=== PATIENT | female | born 1945 | race Caucasian/White ===

== ENCOUNTER 2019-06-08 05:42 | Day surgery (SDC) | payer MEDICARE, OTHER, SELFPAY ==
[2019-06-08] VITALS (7 sets, daily range): BP systolic 137–150; BP diastolic 60–86; PULSE 58–64; RESP 15–16; TEMP 36.2–36.7; O2SAT 96–100; BMI 30.2
--- NOTE | 2019-06-08 05:53 | EKG12_ITS ---
Test Reason : PRE-OP Blood Pressure : / mmHG Vent. Rate : 061 BPM Atrial Rate : 061 BPM P-R Int : 186 ms QRS Dur : 078 ms QT Int : 412 ms P-R-T Axes : 056 008 044 degrees QTc Int : 414 ms Normal sinus rhythm Normal ECG When compared with ECG of 25-MAR-2017 11:53, Nonspecific T wave abnormality now evident in Inferior leads Confirmed by TRELL VAERLA, KENAN ([id number]), editor greeting card MAYRA VICENTE ([id number]) on 06/12/2019 1:03:20 PM Referred By: Nessa Carey Confirmed By:FLACA CAI MD
[2019-06-08 06:27] LABS: Hematocrit 42.7 % (37-47); Hemoglobin 13.8 g/dL (12.0-15.0); Mean Corp Hgb Conc 32.3 g/dL (32-36); Mean Corpuscular Hgb 31.1 pg (27.0-32.0); Mean Corpuscular Volume 96.2 fL (81-99); Mean Platelet Vol. 9.8 fl (6.2-12.0); Platelet Count 209 K/mm3 (150-450); RBC Distribution Width CV 12.4 % (11.6-14.6); RBC Distribution Width SD 43.7 fl (35.1-43.9); Red Blood Count 4.44 M/mm3 (4.2-5.4); White Blood Count 5.1 K/mm3 (4.4-11.0)
[2019-06-08] MEDS: Lactated Ringers 1,000 ML 100 ML IV (06:32)
[2019-06-08 06:33] LABS: International Normalized Ratio 1.4; Prothrombin Time (Protime)PT. 16.5 SECONDS (11.7-14.9)
[2019-06-08 06:34] LABS: Partial Thromboplast Time 34.6 Seconds (24.1-36.2)
[2019-06-08 06:41] LABS: Anion Gap 5 (5-15); BUN 15 mg/dL (7-18); BUN/Creat Ratio 14.9 RATIO (10-20); Calcium,Total 8.8 mg/dL (8.5-10.1); Chloride 109 mmol/L (98-107); Creatinine, Serum 1.01 mg/dL (0.55-1.02); EST Glomerular Filtration Rate 57 mL/min (>60); Est Glom Filt Rate - Afr Amer 69 mL/min (>60); Estimated Creatinine Clearance 46.44 ml/min; Glucose 91 mg/dL (74-106); Potassium 5.4 mmol/L (3.5-5.1); Sodium Level 136 mmol/L (136-145)
--- NOTE | 2019-06-08 06:59 | PCM.HP.OB ---
- Problem List (1) Postmenopausal bleeding Status: Acute History Date of Admission: 06/08/19 History of this : This is a 74 year-old who presented with an episode of postmenopausal bleeding. Medical History: Medical History (Last Updated 06/08/19 @ 07:01 by Nessa Carey DO) Atrial fibrillation I48.91 Hemorrhoid K64.9 Hiatal hernia K44.9 IBS (irritable bowel syndrome) K58.9 Peptic ulcer K27.9 Surgical History: Surgical History (Last Updated 06/08/19 @ 07:01 by Nessa Carey DO) History of colonoscopy Z98.890 History of esophagogastroduodenoscopy (EGD) Z98.890 History of laparoscopy Z98.890 History of skin graft Z94.5 History of tonsillectomy Z90.89 History of tubal ligation Z98.51 Allergies acetaminophen [From Drviviane] Adverse Reaction (Verified 06/08/19 06:05) Unknown chlorpheniramine [From Juan] Adverse Reaction (Verified 06/08/19 06:05) Unknown oxymetazoline HCl [From Juan] Adverse Reaction (Verified 06/08/19 06:05) Unknown pheniramine maleate [From Juan] Adverse Reaction (Verified 06/08/19 06:05) Unknown phenylephrine HCl [From Juan] Adverse Reaction (Verified 06/08/19 06:05) Unknown pseudoephedrine HCl [From Juan] Adverse Reaction (Verified 06/08/19 06:05) Unknown IV DYE Adverse Reaction (Uncoded 06/08/19 06:05) Other Home Medications: Home Medications Amiodarone HCl 100 mg PO DAILY 11/17/15 Apixaban [Eliquis] 5 mg PO BID 11/17/15 Lisinopril [Zestril] 5 mg PO DAILY 11/17/15 Escitalopram Oxalate [Lexapro] 15 mg PO QHS 01/03/16 Fexofenadine HCl [Nicolasa Allergy] 180 mg PO DAILY 06/01/19 Smoking Status: Never smoker History Past Pregnancies: Past Pregnancies Delivery Date Name GA/ Weeks Outcome Route Wt Infant Sex Labor Length Anesthesia Delivery Location Provider FOB Review of Systems Constitutional: Denies: Fever Eyes: Denies: Blurred vision HEENT: Denies: Difficulty Hearing Cardiovascular: Denies: Chest Pain Respiratory: Denies: Cough, Shortness of Breath Gastrointestinal: Denies: Abdominal Pain Genitourinary: Denies: Dysuria Neurological: Denies: Confusion Psychiatric: Denies: Anxiety, Depression Physical Exam Vitals: Vital Signs Temp Pulse Resp BP Pulse Ox 97.3 F L 60 15 144/60 H 100 06/08/19 06:21 06/08/19 06:21 06/08/19 06:21 06/08/19 06:21 06/08/19 06:21 General: Alert, No apparent distress HEENT: Atraumatic Lungs: Clear to auscultation Abdomen: Soft, Non Tender Extremities:: No edema Neurological: Neuro grossly intact Assessment/Plan All Active Problems Postmenopausal bleeding (Acute) Hyponatremia (Acute) Chest pain (Acute) This is a 74 year-old who presented with an episode of postmenopausal bleeding. She had an endometrial biopsy that showed a benign endometrial polyp. Ultrasound showed a normal-sized uterus with a small 1 cm intramural fibroid and an endometrial stripe measuring 7.2 mm in size. Discussed a hysteroscopy D&C with polypectomy. Reviewed alternative would be in an office hysteroscopy which would be diagnostic. After discussion of risks, benefits, and alternatives the patient requested to proceed with a hysteroscopy, dilation and curettage, polypectomy.
[2019-06-08] MEDS: 0.9% Normal Saline 1,000 ML 30 ML IV (07:12)
--- NOTE | 2019-06-08 07:30 | EMB_PTH ---
PATIENT: TAMIKA AZAR LOC: [facility] [place] U#:[id number] AGE/SX: 74/F ROOM: RE06/08/[address]: Dr. Nessa Carey, : 1945 BED: DIS: 06/08/2019 SPEC #: [id number] RECD: 06/08/19 10:11 STATUS: DEBORAH ANDREA #: [id number] JULIO: 06/08/19 07:[address]: Nessa Carey DEPT: SURGICAL PATHOLOGY RECD BY: Dagoberto Rivera Tissues: Endometrium, NOS Procedures: Surgery Specimen Level IV HEADER OPERATION: Hysteroscopy, D & C, polypectomy PRE-OP DIAGNOSIS: Postmenopausal bleeding TISSUE SUBMITTED: Endometrial curettings MICROSCOPIC DIAGNOSIS Endometrial curettings: Fragments of benign endometrial tissue with focal cystic changes. Fragments of benign ectocervical epithelium. SJ:lavern 06/09/19 COMMENT Clinical correlation and appropriate follow up are necessary. MICROSCOPIC DESCRIPTION Slides are reviewed. GROSS DESCRIPTION Received in fixative is one container labeled with the patient's name and designated endometrial curettings. The specimen consists of multiple fragments of hemorrhagic mucoid tissue that in aggregate measure 2.5 x 1.5 x 0.1 cm. The entire specimen is submitted in one cassette. / SJ:rg 06/08/19 TC:5 [facility]: [id number]
[2019-06-08] MEDS: Lubricating Jelly 60 GM Tube 30 GM TOPICAL (07:39)
--- NOTE | 2019-06-08 07:51 | DCINST_ITS ---
Discharge Diet: No Restrictions Discharge Activity: Return to Normal Activity, May Not Drive, May Shower May resume sexual activity in: 4-6 weeks Weight Bearing Status: Weight bearing as tolerated Lifting Restrictions: None Call your doctor if you observe: Fever of 101 or Higher, Inability to urinate, Inability to have a bowel movement, Using more than one pad per hour, Shortness of breath, Dizziness, Chest pain, Increased palpitations (irregular heartbeat), Calf discomfort, Uncontrolled pain Instructions: Dilation and Curettage Allergies/Adverse Reactions: Allergies acetaminophen [From Dristan] Adverse Reaction (Verified 06/08/19 06:05) Unknown chlorpheniramine [From Dristan] Adverse Reaction (Verified 06/08/19 06:05) Unknown oxymetazoline HCl [From Dristan] Adverse Reaction (Verified 06/08/19 06:05) Unknown pheniramine maleate [From Dristan] Adverse Reaction (Verified 06/08/19 06:05) Unknown phenylephrine HCl [From Dristan] Adverse Reaction (Verified 06/08/19 06:05) Unknown pseudoephedrine HCl [From Dristan] Adverse Reaction (Verified 06/08/19 06:05) Unknown IV DYE Adverse Reaction (Uncoded 06/08/19 06:05) Other Medications to take at Discharge Amiodarone HCl 100 mg PO DAILY 11/17/15 Apixaban [Eliquis] 5 mg PO BID 11/17/15 Lisinopril [Zestril] 5 mg PO DAILY 11/17/15 Escitalopram Oxalate [Lexapro] 15 mg PO QHS 01/03/16 Fexofenadine HCl [Nicolasa Allergy] 180 mg PO DAILY 06/01/19 Primary Care Physician: SMILEY JANE [Other] Test Results: Test results from this visit will be discussed in further detail at your follow- up appointment, if applicable. Please Follow Up With: Nessa Carey DO When: 1 week
--- NOTE | 2019-06-08 07:53 | PCM.OPRPT ---
Problem List (1) Postmenopausal bleeding Status: Acute Report of Operation Date of Procedure: 06/08/19 Pre-Operative Diagnosis: Postmenopausal bleeding, polyp on biopsy Post-Operative Diagnosis: Postmenopausal bleeding Surgery/Procedure Performed:: Hysteroscopy D&C Description of Surgical Findings:: Rectocele and cystocele noted. Normal-appearing uterine cavity. Bilateral tubal ostia were visualized. The endometrium is thin and atrophic appearing. There were no polyps or fibroids noted in the cavity. Type of Anesthesia:: MAC Specimen's removed: Endometrial curettings Drains: None Estimated Blood Loss (mL): < 50 cc Description of Procedure: Patient was prepped and draped in the dorsal lithotomy position using yellowfin stirrups. Anesthesia was found to be adequate. A weighted speculum was placed in the vagina to expose the cervix. The anterior lip of the cervix was grasped with a single-tooth tenaculum. The cervix was serially dilated to accommodate the hysteroscope. The hysteroscope was advanced into the uterus and it was distended with normal saline. The uterine cavity appeared normal and bilateral tubal ostia were visualized. There were no polyps or fibroids noted. The endometrium was thin and atrophic appearing. The hysteroscope was then removed. A sharp curettage was performed for scant tissue. Endometrial curettings were sent to pathology for review. All instruments were removed from the vagina. Bleeding was hemostatic. Instrument counts were correct. The patient was taken to the recovery room in stable condition. Grafts/Implants Used: None - Complications None - Admit VTE Documentation VTE Present on Admission: No VTE Mechan Device Prophylaxis: SCD's
== END 2019-06-08 09:39 | disposition home or self-care (01) ==
LOC: SDC 05:44 → AC 05:46
PROVIDERS: Referring Provider Obstetrics & Gynecology; Visit Provider Obstetrics & Gynecology
PROC: 0UDB8ZZ Extraction of Endometrium, Via Natural or Artificial Opening Endoscopic (ICD-10-PCS; CPT 58558; principal; 2019-06-08 07:20)
DX: N95.0 Postmenopausal bleeding (principal); I48.91 Unspecified atrial fibrillation; I10 Essential (primary) hypertension; I27.20 Pulmonary hypertension, unspecified; M19.90 Unspecified osteoarthritis, unspecified site; Z79.01 Long term (current) use of anticoagulants; Z79.899 Other long term (current) drug therapy
CPT/HCPCS: 00952; 58558; 36415; 80048; 85027; 85610; 85730; 86850; 86900; 86901; 88305; 93005; J7030; J7120